=== PATIENT | female | born 1980 | race Caucasian/White ===

== ENCOUNTER 2017-10-15 15:23 | Emergency (ER) | payer OTHER ==
[2017-10-15 19:01] LABS: URINE PH (Dip) POC 5.5 (5.0-8.5)
[2017-10-15 19:01] LABS: URINE BLOOD (Dip) POC 1+ (NEGATIVE); URINE KETONES (Dip) POC Negative (NEGATIVE); URINE LEUKOCYTE EST (Dip) POC Negative (NEGATIVE); URINE NITRITE (Dip) POC Negative (NEGATIVE); URINE TOTAL PROTEIN POC Trace (NEGATIVE)
== END 2017-10-15 20:32 | disposition home or self-care (01) ==
LOC: FTE 15:23
DX: S39.92XA Unspecified injury of lower back, initial encounter (principal); R30.0 Dysuria; X58.XXXA Exposure to other specified factors, initial encounter; Y92.9 Unspecified place or not applicable
CPT/HCPCS: 81003; 82962; 99283